=== PATIENT | male | born 1990 | race Caucasian/White ===

== ENCOUNTER 2020-07-31 22:03 | Emergency (ER) | payer BC, OTHER ==
[2020-07-31 22:10] VITALS: BP 152/99; PULSE 81; RESP 16; TEMP 98.9
[2020-07-31] MEDS ORDERED: KETOROLAC 15 MG/ML 1 ML VIAL IM STA (23:07)
[2020-07-31] MEDS ORDERED: ACET/COD 300 MG/30 MG STARTER PACK 6 TAB BTL PO STA (23:07)
--- NOTE | 2020-07-31 23:11 | ED ---
Skin/Abscess/FB HPI - General Chief complaint: Skin/Abscess/Foreign Body Stated complaint: Head pain Time Seen by Provider: 07/31/20 22:12 Source: patient Mode of arrival: ambulatory Limitations: no limitations - History of Present Illness Initial comments: 29-year-old male patient presents to the emergency department today for evaluation of pain to the right side of his head and rash. Patient states that 4 days ago he started having a generalized dull achy pain to the right side of his scalp. States the pain has been sharp at times. States that over the last 24 hours he did develop bumps over the right side of his head. States the bump nearest his ear is draining yellowish fluid. States that he does have some ear discomfort with this. Denies fever or chills. Denies history of similar symptoms. He denies any exposure to new shampoos, soaps, or lotions. He does admit to having chickenpox as a child. Patient denies any recent fever, chills, cough, shortness of breath, chest pain, abdominal pain, nausea, vomiting, diarrhea, constipation, back pain, numbness, tingling, dizziness, weakness, hematuria, dysuria, urinary urgency, urinary frequency, headache, visual changes, or any other complaints. - Related Data Previous Rx's Medication Instructions Recorded Ibuprofen [Motrin] 600 mg PO Q6HR PRN #40 day 11/09/15 Hydrocodone/Acetaminophen [[place] 1 tab PO Q6HR PRN #12 tab 07/31/20 5-325] Ibuprofen [Motrin] 600 mg PO Q8HR PRN #30 tab 07/31/20 valACYclovir HCL 1,000 mg PO TID #21 tab 07/31/20 Allergies Allergy/AdvReac Type Severity Reaction Status Date / Time No Known Allergies Allergy Verified 11/09/15 08:58 Review of Systems ROS Statement: Those systems with pertinent positive or pertinent negative responses have been documented in the HPI. ROS Other: All systems not noted in ROS Statement are negative. Past Medical History Past Medical History: No Reported History History of Any Multi-Drug Resistant Organisms: None Reported Additional Past Surgical History / Comment(s): fei Past Psychological History: No Psychological Hx Reported Smoking Status: Never smoker Past Alcohol Use History: Occasional Past Drug Use History: None Reported General Exam Limitations: no limitations General appearance: alert, in no apparent distress, other (this is a well- developed, well-nourished adult male patient in no acute distress. ) Head exam: Present: other (There are clusters of vesicles over the right ear at the hair line. There is yellow drainage. Erythema and vesicles noted over the right parietal scalp. Scalp is tender.) Eye exam: Present: normal appearance, PERRL, EOMI. Absent: scleral icterus, conjunctival injection, periorbital swelling ENT exam: Present: normal exam, normal oropharynx, mucous membranes moist, TM's normal bilaterally (No vesicles noted to ear canal or over the TM.) Respiratory exam: Present: normal lung sounds bilaterally. Absent: respiratory distress, wheezes, rales, rhonchi, stridor Cardiovascular Exam: Present: regular rate, normal rhythm, normal heart sounds. Absent: systolic murmur, diastolic murmur, rubs, gallop, clicks Neurological exam: Present: alert, oriented X3, CN II-XII intact Psychiatric exam: Present: normal affect, normal mood Skin exam: Present: warm, dry, intact, normal color. Absent: rash Course Vital Signs 07/31/20 22:05 Temperature 98.9 F Pulse Rate 81 Respiratory 16 Rate Blood Pressure 152/99 O2 Sat by Pulse 98 Oximetry Medical Decision Making - Medical Decision Making 29-year-old male patient presented to the emergency department today for evaluation of pain and rash to the right sided scalp. Physical examination did reveal erythema and clustered vesicular lesions over the right parietal scalp especially over the right ear. There is no evidence for erythema or vesicles to the right ear canal or over the tympanic membrane. Patient denies any eye symptoms. We did start valacyclovir and pain management for herpes zoster infection. we will send prescription for pain medication and valacyclovir to his pharmacy. Is instructed to follow-up with his primary care physician for recheck in 1-2 days. Return parameters were discussed in detail. Patient verbalizes understanding and agrees with this plan. Disposition Clinical Impression: Shingles Disposition: HOME SELF-CARE Condition: Good Instructions (If sedation given, give patient instructions): Shingles (ED) Additional Instructions: Take medication as directed. Complete valacyclovir in full. Take pain medication as needed. Consider using cool compresses to the area to help with pain. Follow-up with your primary care physician for recheck in 1-2 days. Return to the emergency department immediately for any new, worsening, or concerning symptoms. Prescriptions: Ibuprofen [Motrin] 600 mg PO Q8HR PRN #30 tab PRN Reason: Pain Hydrocodone/Acetaminophen [[place] 5-325] 1 tab PO Q6HR PRN #12 tab PRN Reason: Pain valACYclovir HCL 1,000 mg PO TID #21 tab Is patient prescribed a controlled substance at d/c from ED?: Yes When asked, does pt state using other controlled substances?: No If prescribed controlled substance>3 days was MAPS reviewed?: Prescribed <3 Days If opioid is for acute pain is fill amount 7 days or less?: Yes If Rx opioid, was Start Talking consent form obtained?: Yes Referrals: Jarred Farfan III, MD [Primary Care Provider] - 1-2 days Time of Disposition: 23:11
[2020-07-31] MEDS ORDERED: valACYclovir 500 MG TAB PO ONE (23:15)
== END 2020-07-31 23:43 | disposition home or self-care (01) ==
LOC: EC 22:03
DX: B02.9 Zoster without complications (principal); R51.9 Headache, unspecified
CPT/HCPCS: 96372; 99283; J1885

== ENCOUNTER 2020-10-15 07:59 | Day surgery (SDC) | payer BC ==
[2020-10-13 16:04] VITALS: BMI 27.7
[~2020-10-15 07:59] MED LIST: LACTATED RINGERS 1,000 ML IV SCH; LIDOCAINE 1% (10MG/ML) FOR IV START INTRADERMA PRN
[2020-10-15 08:42] VITALS: RESP 16; TEMP 98.4
[2020-10-15] MEDS ORDERED: PROPOFOL 10 MG/ML 20 ML VIAL IV ONE (09:10)
--- NOTE | 2020-10-15 09:15 | P.GSHP ---
History of Present Illness H&P Date: 10/15/20 Chief Complaint: Change in bowel habits This a 29-year-old male who presents today for colonoscopy. He has issues with change in bowel habits. Patient points of abdominal pain and diarrhea. Past Medical History Past Medical History: Osteoarthritis (OA) Additional Past Medical History / Comment(s): abdominal pain with bowel movements, History of Any Multi-Drug Resistant Organisms: None Reported Additional Past Surgical History / Comment(s): oral surgery, nasal surgery Past Anesthesia/Blood Transfusion Reactions: No Reported Reaction Smoking Status: Never smoker - Past Family History Mother Family Medical History: No Reported History Medications and Allergies Home Medications Medication Instructions Recorded Confirmed Type Acetaminophen [Tylenol Extra 1,000 mg PO DIRECTED PRN 10/13/20 10/13/20 History Strength] Allergies Allergy/AdvReac Type Severity Reaction Status Date / Time No Known Allergies Allergy Verified 10/15/20 08:23 Surgical - Exam Vital Signs Temp Pulse Resp BP Pulse Ox 98.4 F 94 16 143/92 99 10/15/20 08:30 10/15/20 08:30 10/15/20 08:30 10/15/20 08:30 10/15/20 08:30 - General well developed, well nourished, no distress - Eyes PERRL - ENT normal pinna - Neck no masses - Respiratory normal expansion - Cardiovascular Rhythm: regular - Abdomen Abdomen: soft, non tender Assessment and Plan Assessment: Abdominal pain, diarrhea. We'll perform colonoscopy.
--- NOTE | 2020-10-15 09:28 | P.OP ---
Date of Procedure: 10/15/20 Preoperative Diagnosis: Change in bowel habits Diarrhea Postoperative Diagnosis: Normal colonoscopy Procedure(s) Performed: Colonoscopy Anesthesia: MAC Surgeon: Felix Sy Pathology: none sent Condition: stable Disposition: PACU Description of Procedure: PROCEDURE: The patient was placed on the endoscopy table in the lateral position. Digital rectal examination was performed which revealed no abnormalities. The prostate was symmetrical without nodules. Flexible colonoscope was then placed in the patient's anus and passed throughout the entire colon. The ileocecal valve was visualized. The cecum, ascending, transverse, descending and sigmoid colon were normal. The rectum was normal as well. There were no masses, polyps or diverticula noted in the entire colon. SUMMARY OF FINDINGS: Normal colonoscopy.
[2020-10-15 09:49] VITALS: BP 113/78; PULSE 76
== END 2020-10-15 10:14 | disposition home or self-care (01) ==
LOC: ORWHC2ENDO 07:59
PROVIDERS: ATTEND Surgery
DX: R19.4 Change in bowel habit (principal); R19.7 Diarrhea, unspecified; R10.9 Unspecified abdominal pain; M19.90 Unspecified osteoarthritis, unspecified site; Z79.899 Other long term (current) drug therapy; Z98.890 Other specified postprocedural states
CPT/HCPCS: 45378; J2704